=== PATIENT | female | born 1960 | race Caucasian/White ===

== ENCOUNTER 2022-12-08 16:52 | Emergency (ER) | payer BC | END 2022-12-08 17:39 | disposition home or self-care (01) | LOC: MADERS 16:52 | DX: M79.602 Pain in left arm (principal); E11.9 Type 2 diabetes mellitus without complications | CPT/HCPCS: 99283 ==

== ENCOUNTER 2025-07-01 13:34 | Emergency (ER) | payer MEDICARE ==
[2025-07-01 14:15] LABS: ALT (SGPT) 14 U/L (Less than 34); AST (SGOT) 16 U/L (11-34); Albumin 4.4 g/dL (3.1-4.5); Alkaline Phosphatase 64 U/L (40-110); Anion Gap 18 mmol/L (10-20); BUN (Urea Nitrogen) 13 mg/dL (9.8-20.1); Bilirubin, Total 0.7 mg/dL (0.3-1.2); Calc. Creatinine Clearance 0 mL/min (70-130); Calcium 9.3 mg/dL (7.8-10.44); Carbon Dioxide 21 mmol/L (23-31); Chloride 99 mmol/L (98-107); Globulin 3.4 g/dL (2.4-3.5); Glucose 362 mg/dL (80-115); Potassium 4.1 mmol/L (3.5-5.1); Sodium 134 mmol/L (136-145)
[2025-07-01 14:16] LABS: Troponin I Less than 0.010 ng/mL (< 0.028)
[2025-07-01 14:22] LABS: Hematocrit 48.7 % (36.0-47.0); Hemoglobin 16.0 g/dL (12.0-16.0); MDiff Complete? YES; Manual Diff?? YES; Mean Corpuscular Hemoglobin 27.4 pg (27.0-31.0); Mean Corpuscular Volume 83.3 fl (78.0-98.0); Platelet Count 328 10x3/uL (130-400); Red Blood Cell (RBC) Count 5.85 mill/uL (4.20-5.40); White Blood Cell (WBC) Count 13.6 10x3/uL (4.8-10.8)
[2025-07-01 14:23] LABS: Platelet Adequacy Comment Appears Adequate
[2025-07-01] MEDS ORDERED: Nitroglycerin 0.4 MG TAB 1 EACH ONE (14:32)
[2025-07-01] MEDS ORDERED: Aspirin Chewable 81 MG TAB ONE (14:33)
[2025-07-01] MEDS ORDERED: Lidocaine Viscous Sol 2% 15 ml UD Cup ONE (15:13)
[2025-07-01] MEDS ORDERED: Mag-Al 1200 mg/1200 mg/30 ML UDCUP ONE (15:13)
== END 2025-07-01 15:44 | disposition home or self-care (01) ==
LOC: MADERS 13:34
DX: R07.2 Precordial pain (principal); I10 Essential (primary) hypertension; E11.65 Type 2 diabetes mellitus with hyperglycemia; K04.7 Periapical abscess without sinus
CPT/HCPCS: 41800; 71045; 80053; 84484; 85025; 85379; 93005; 94760